=== PATIENT | female | born 1940 | race Caucasian/White ===

== ENCOUNTER 2017-02-11 10:20 | Day surgery (SDC) | payer MEDICARE, OTHER ==
[~2017-02-11] VITALS: Ht 162.6 cm; Wt 120.0 kg
[~2017-02-11 10:20] MED LIST: ALBU6.7H INH; ATRINH INH; HYG25 PO; IPRA3AMP IH; LEVO125C2 PO; LEVO125T6 PO; LISI40TA PO; Lactated Ringer's 1,000 ML IV ONE; NITR0.4T6 SL; POTA20TA16 PO; SIMV40TA5 PO
[2017-02-11] MEDS ORDERED: Ketamine 10 mg/mL 20 mL Inj ONE (10:21)
[2017-02-11] MEDS ORDERED: fentaNYL-PF 50 mCg/mL 2 mL Inj ONE (10:21)
[2017-02-11] MEDS ORDERED: Propofol 10,000 mCg/mL 20 mL Inj ONE (10:21)
[2017-02-11 10:59] VITALS: BP 162/62; PULSE 62; RESP 16; O2SAT 94
[2017-02-11] MEDS ORDERED: Ondansetron 2 mg/mL 2 mL Inj IVPUSH PRN (11:25)
[2017-02-11] MEDS ORDERED: MetoCLOpramide 5 mg/mL 2 mL Inj IVPUSH PRN (11:25)
[2017-02-11] MEDS ORDERED: Lactated Ringer's 1,000 ML IV SCH (11:25)
--- NOTE | 2017-02-11 11:25 | PCM.HPANE ---
Patient Data Surgeon Admitting Provider: Attending Provider:Cuba Fletcher MD Primary Care Physician:Sourav Call Other Provider:Garrison Harry Anesthesia Reason for Visit Colon Polpy Ht/WT & BMI Height (Feet): 5 Height (Inches): 4 Weight (Kilograms): 120 Body Mass Index 45.00 Allergies Coded Allergies: Penicillins (Verified Allergy, Severe, Anaphylaxis, 01/03/16) PT TOLERATES CEFTRIAXONE 01/03/2016 SB Sulfa (Sulfonamide Antibiotics) (Verified Allergy, Severe, Anaphylaxis, 09/08) aspirin (Verified Allergy, Severe, Anaphylaxis, 01/03/16) codeine (Verified Allergy, Unknown, 02/10/17) tramadol (Verified Allergy, Unknown, 02/10/17) Past Anesthesia History Anesthesia History: Denies:: Abnormal Airway, Anesthesia Reactions, Difficult Intubation, Fam Anesthesia Reaction, Fam Malignant Hypertherm, Malignant Hyperthermia Diabetes History Hx Diabetes?: No MRSA MRSA: No Medications Hypertension Medication: Yes Home Meds Incl Beta Chioma: No Reported Medications Levothyroxine (Tirosint)125 Mcg [id number] Mcg PO DAILY 02/10/17 Ipratropium/Albuterol Sulfate (Iprat-Albut 0.5-3(2.5) mg/3 mL Inhalant Soln)3 Ml Ampul.neb3 Ml IH Q6 Ref 0 02/10/17 Chlorthalidone 25 Mg Ujhbmb42 Mg PO DAILY #30 TABLET 02/10/17 Ipratropium [place] (Atrovent HFA)200 Puff/12.9 Gm Inhaler2 Puff INH BID #1 INH Ref 0 02/10/17 Albuterol Sulfate (Proventil HFA Inhaler)6.7 Gm Hfa.aer.ad1 Puff INH Q4 PRN For Shortness of Breath #1 INHALER Ref 0 02/10/17 Simvastatin 40 Mg Lxzovl13 Mg PO HS 30 Days Ref 0 01/03/16 Nitroglycerin SL 0.4 Mg Tab.subl0.4 Mg SL Q5MIN PRN For Chest Pain 01/03/16 Lisinopril 40 Mg Llcslr80 Mg PO DAILY 30 Days Ref 0 01/03/16 Potassium Chloride 20 Meq Tab.er.prt20 Meq PO DAILY 30 Days Ref 0 TAKE WITH FOOD 01/03/16 Discontinued Reported Medications Levothyroxine 125 Mcg Hxldbd136 Mcg PO DAILY For Thyroid Replacement Ref 0 01/03/16 Furosemide 20 Mg Tab20 Mg PO Q2DAY #36 01/03/16 Fluticasone Propionate (Fluticasone Propionate Nasal)16 Gm [place].susp1 [place] NS BID #16 GM Ref 0 01/03/16 History History of ENT Problems?: No HEENT History: Denies:: Abnormal Airway Difficult Intubation Dysphagia Hearing Problem Denture Type: Full- Upper Full- Lower Hx of Heart Problems?: Yes Cardiovascular History: Positive for:: Chest Pain Edema Hypertension Denies:: AICD Atrial Fibrillation Pacemaker Valvular Heart Disease Hx of Respiratory Problem?: Yes Respiratory History: Positive for:: Asthma COPD Cough Dyspnea Pneumonia Denies:: Hemoptysis Hx Neurologic Problems?: No Neurological History: Denies:: CVA Hx of GI Problems?: Yes Gastrointestinal History: Positive for:: Diverticulitis Gall Bladder Disease Denies:: Cirrhosis Gastroesphageal Reflux Hiatal Hernia Liver Disease Rectal Bleeding Hx of Problems?: No Female Hx: Denies:: Currently Endometriosis Pelvic Inflammatory Problems with Breasts? Hx Musculoskeletal Problems?: Yes Musculoskeletal History: Positive for:: Back Injury (s/p back and neck sry) Joint Replacement Denies:: Fibromyalgia Hx of Psycho/Social Problems?: No Psycho Social History: Denies:: Anxiety Hx Depression Hx Surgeries?: Yes (BILAT KNEE REPLACEMENT, BACK,GALLBLADDER, THYROID,TONSIL) Hx Any Other Health Problems?: Yes Other History: Positive for:: Cancer (hx thyroid ca s/p thyroidectomy) Hospitalization Thyroid Disease (hypothyroidism, on replacement) History Blood Transfusions: Denies:: Blood Transfusions Hx Diabetes: No Hx Alcohol Use: NoHx Substance Use: No Smoking Status: Never Smoker Stop/Bang Treated for Sleep Apnea?: Yes Do You Have a CPAP Machine?: Yes DELIA Risk Assessment: High Risk, =/>3 Yes DELIA Category 4 OutPt Procedure: Yes Risk Assessment Category Category 1A: Patient has history of documented sleep apnea, and HAS NOT received any narcotic, sedative or anesthesia administration during this stay. Category 1B: Patient has history of documented sleep apnea, and HAS received any narcotic , sedative or anesthesia administration during this stay Category 2: Patient has SUSPECTED Obstructive Sleep Apnea, and HAS received any narcotic , sedative or anesthesia administration during this stay. Category 3: Patient has SUSPECTED Obstructive Sleep Apnea and HAS NOT received narcotic, sedative or anesthesia administration during this stay. Category 4: Outpatient in Procedural Areas with known sleep apnea or who screen positive for High Risk via the STOP/BANG questionnaire. Exam Exam Vital Signs Vital Signs Date Time Temp Pulse Resp B/P Pulse Ox O2 Delivery O2 Flow Rate FiO2 02/11/17 10:59 36.1 62 16 162/62 94 Room Air General Appearance: Alert, Oriented X3, Cooperative, No Acute Distress HEENT/AIRWAY: MP 2 Lungs: Clear to Auscultation, Normal Air Movement Heart: Exam Unremarkable, Regular Rate/Rhythm, No Murmurs/Rubs/Gallops Meds/Labs/Diagnostics Admission Meds Current Medications Lactated Ringer's (Lr) 1,000 ml @ 10 mls/hr Q24H ONCE IV Last administered on 02/11/17t 11:12; Start 02/11/17 at 06:00; Stop 02/12/17 at 05:59 Plan Impression Patient chart reviewed, patient interviewed and anesthestic plan with risks, benefits, and alternatives discussed, and informed consent obtained. ASA Physical Status: ASA3 Severe Disease (BMI 45) Anesthetic Plan: MAC Bene/Risks/Altern/Consents: Yes HP Complete Prior to Induction: Yes Wesly Goins MD Feb 11, 2017 11:25
[2017-02-11 12:41] VITALS: BP 114/61; PULSE 60; RESP 14; O2SAT 96
[2017-02-11 12:53] VITALS: BP 114/61; PULSE 60; RESP 14; O2SAT 94
--- NOTE | 2017-02-11 15:31 | PCM.ANEP2 ---
Post Anesthesia Evaluation ASA/CMS Post Anesthesia VS in Patient's Normal Range?: Yes Resp Stable; Airway Patent?: Yes CV Function & Hydration Stable: Yes Mental Status Recovered?: Yes Pain control Satisfactory?: Yes N/V Control Satisfactory?: Yes Wesly Goins MD Feb 11, 2017 15:31
--- NOTE | 2017-02-11 15:31 | PCM.ANEP1 ---
Post Anesthesia Phase 1 PACU Phase 1 Assessment Vital Signs Vital Signs Date Time Temp Pulse Resp B/P Pulse Ox O2 Delivery O2 Flow Rate FiO2 02/11/17 12:53 60 14 114/61 94 Room Air 02/11/17 12:41 36.1 60 14 114/61 96 Room Air 02/11/17 10:59 36.1 62 16 162/62 94 Room Air Anesthetic Administered: MAC Level of Alertness: Awake, talking ARCE's with Equal Strength: Yes Pain: No Nausea or Vomiting: No Oxygen Delivery: Nasal Cannula Lungs: Clear to Auscultation, Normal Air Movement Dermatome Level: Full Sensation Wesly Goins MD Feb 11, 2017 15:31
--- NOTE | 2017-02-11 17:28 | ENDO ---
[address] [address] ENDOSCOPY PROCEDURE PATIENT: RUDDY DONOVAN : 1940 MR#: [id number] ADMIT: 02/11/2017 JOB ID: [id number] PRIMARY PROVIDER: Sourav Call DO PROCEDURE: Colonoscopy with hot snare polypectomy, cold snare polypectomy, cold biopsy forceps, and tattoo placement. INDICATIONS: A 77-year-old female with a history of multiple colon polyps returning for surveillance. She is way overdue for surveillance and reports having had 14 polyps removed back in 2004. EQUIPMENT: PCF-H180AL. SEDATION: Monitored anesthesia as provided by Dr. Wesly Goins. COMPLICATIONS: None identified. BOWEL PREPARATION: Fair, adequate exam. PROCEDURE INFORMATION: After the risks and benefits were explained, written and verbal informed consent was obtained. The patient was brought into the endoscopy suite and placed into the left lateral decubitus position. Sedation was achieved as above and a digital rectal examination accomplished. Moderate internal hemorrhoids noted. No other pathology. The scope was introduced into the rectum and advanced under direct visualization to the cecum as identified by the appendiceal orifice and the ileocecal valve. The scope was slowly withdrawn to carefully examine the mucosa for any defects or lesions. Multiple direct views were ultimately made through the dentate line for exclusion of pathology. The colon was decompressed and the scope removed from the patient, who tolerated the procedure reasonably well. FINDINGS: The patient had 15 polyps seen and removed today. Many of these were small or medium in size. A few of the smaller ones were removed with cold snare and then 10 of the more medium-sized polyps were removed with hot snare. These were submitted as "colon polyps" and were fairly well distributed throughout the entire colon. In the left colon, at around the splenic flexure and perhaps 8 cm distal to the splenic flexure in the descending were two large polyps on broad stalks. Both of these were removed with hot snare polypectomy. The more proximal one at the splenic flexure appeared as though there may have been some residual polyp remaining that I removed with two other hot snare bites. These were submitted separately. One was labeled splenic flexure polyp, the other was labeled descending colon polyp. These measured approximately 15-18 mm. There were no hemorrhagic complications. I placed a tattoo adjacent the more distal lesion in the descending colon. The patient had scattered diverticula throughout the sigmoid. There were several benign smaller polyps that were left in place today and not removed. This was a considerably challenging procedure with a long redundant colon and numerous polypectomies as above. Scope time was prolonged, approximately 60+ minutes, and therefore a 22 modifier was requested. ENDOSCOPIC DIAGNOSIS: 1. Multiple colon polyps (x15). 2. Diverticulosis. 3. Hemorrhoids. RECOMMENDATIONS: 1. Await histopathology. 2. Repeat colonoscopy in six months' time considering we did not remove all of the small polyps seen today.
--- NOTE | 2017-02-13 11:11 | PATH ---
SURGICAL PATHOLOGY Attending Physician:Nestor Guo CASE STATUS: Signed Out PATIENT NAME: RUDDY DONOVAN PID: [id number] : 1940 DATE COLLECTED:02/11/2017 20:02 SPECIMEN: 1: Colon, Biopsy 2: Colon, Biopsy 3: Colon, Biopsy CLINICAL HISTORY: 1). COLON POLYPS X13 2). SPLENIC FLEXURE POLYP X1 3). DESCENDING COLON POLYP X1 FINAL DIAGNOSIS: 1.COLON POLYPS: TUBULAR ADENOMAS (ELEVEN FRAGMENTS). 2.SPLENIC FLEXURE POLYP: SESSILE SERRATED ADENOMA. 3.DESCENDING COLON POLYP: SESSILE SERRATED ADENOMA. ICD10 CODE D12.6 GROSS DESCRIPTION: The specimen is received in three formalin filled containers labeled with the patient's name. 1). The specimen is sublabeled "colon polyps x13" and consists of multiple taylor-kendrick portions of tissue which aggregate to 2.0 x 1.0 x 0.4 CM. The specimen is filtered entirely submitted in cassette 1A. 2). The specimen is sublabeled "splenic flexure polyp x1" and consists of 3 portions of tissue which aggregate to 1.0 x 0.6 x 0.6 CM. The 2 smallest pieces are entirely submitted. The largest piece is trisected and entirely submitted in the same cassette. 3). The specimen is sublabeled "descending colon polyp x1" and consists of a 0.9 x 0.9 x 1.0 CM portion of tissue. The specimen is trisected and entirely submitted in cassette 3A. 02/11/2017 [facility] MICRO DESCRIPTION: See diagnosis. ICD-9 CODES: CPT CODES: 1: 98561 2: 00591 3: 55192 Electronically Signed Out Jaswant Aguiar MD [facility] [address], [place] [address] Technical component performed at [facility], [address] [place] [address] Ave[address], [place], [address]
== END 2017-02-11 23:59 | disposition home or self-care (01) ==
LOC: END 10:20
PROVIDERS: ATTEND Internal Medicine Gastroenterology
DX: Z12.11 Encounter for screening for malignant neoplasm of colon (principal); D12.3 Benign neoplasm of transverse colon; D12.4 Benign neoplasm of descending colon; K57.30 Diverticulosis of large intestine without perforation or abscess without bleeding; K64.8 Other hemorrhoids; I10 Essential (primary) hypertension; F17.210 Nicotine dependence, cigarettes, uncomplicated; Z79.899 Other long term (current) drug therapy
CPT/HCPCS: 45380; 45381; 45385; 88305; J2250; J3010; J7120